=== PATIENT | male | born 1980 | race Caucasian/White ===

== ENCOUNTER 2020-01-22 16:32 | Emergency (ER) | payer BC, OTHER ==
[~2020-01-22] VITALS: Ht 177.8 cm; Wt 88.5 kg
[2020-01-22 19:34] VITALS: BP 134/84
== END 2020-01-22 19:31 | disposition home or self-care (01) ==
LOC: ER 16:32
DX: S06.0X1A Concussion with loss of consciousness of 30 minutes or less, initial encounter (principal); M48.02 Spinal stenosis, cervical region; M25.78 Osteophyte, vertebrae; I10 Essential (primary) hypertension; V86.56XA Driver of dirt bike or motor/cross bike injured in nontraffic accident, initial encounter; Y93.89 Activity, other specified; Y92.89 Other specified places as the place of occurrence of the external cause; Y99.8 Other external cause status
CPT/HCPCS: 70450; 72125

== ENCOUNTER 2021-12-23 13:55 | Inpatient (IN) | payer BC ==
[~2021-12-23] VITALS: Ht 177.8 cm; Wt 88.2 kg
[2021-12-23] MEDS ORDERED: SODIUM CHLORIDE 0.9% 1,000 ML IV ONE (14:30)
[2021-12-23 14:46] LABS: Basophils # (auto) 0.1 10 ^3/uL (0-0.2); Basophils % (auto) 0.8 % (0.0-2.0); Eosinophils # (auto) 0 10 ^3/uL (0-0.8); Eosinophils % (auto) 0.5 % (0.0-7.0); Hematocrit 48.3 % (41.0-53.0); Hemoglobin 15.9 g/dL (13.5-17.5); Lymphocytes # (auto) 1.4 10 ^3/uL (0.4-5.4); Lymphocytes % (auto) 19.5 % (10.0-50.0); Mean Corpuscular Hemoglobin 27.7 pg (28.0-32.0); Mean Corpuscular Hgb Conc. 32.8 g/dL (32.0-36.0); Mean Corpuscular Volume 84.5 fL (80.0-100.0); Monocytes # (auto) 0.5 10 ^3/uL (0-1.3); Neutrophils # (auto) 5.1 10 ^3/uL (1.6-8.6); Neutrophils % (auto) 72.2 % (37.0-80.0); Nucleated Red Blood Cells % 0.1 %; Red Blood Cells 5.72 10^6/uL (4.5-5.90); Red Cell Distribution Width 12.7 % (11.8-14.3); White Blood Cell 7.1 10^3/uL (4.4-10.8)
[2021-12-23 15:05] LABS: Albumin 4.1 g/dL (3.4-5.0); BUN/Creatinine Ratio 16.9; Calcium 9.5 mg/dL (8.5-10.1); Potassium 4.3 mmol/L (3.5-5.1)
[2021-12-23 15:08] LABS: Bilirubin, Total 0.4 mg/dL (0.2-1.0); Total Protein 8.1 g/dL (6.4-8.2)
[2021-12-23] MEDS ORDERED: InsuLIN REG 1unit/0.01ml Soln (100units/ml) IV ONE (15:45)
[2021-12-23] MEDS ORDERED: DEXTROSE (50%) 50ML SYRG IV PRN (20:30)
[2021-12-23] MEDS ORDERED: ONDANSETRON HCL 4 MG/2 ML VIAL IV PRN (20:30)
[2021-12-23] MEDS ORDERED: ZOLPIDEM TARTRATE 5 MG TAB PO PRN (20:30)
[2021-12-23] MEDS ORDERED: LORazepam 0.5 MG TAB PO PRN (20:30)
[2021-12-23] MEDS ORDERED: ACETAMINOPHEN 325 MG TAB PO PRN (20:30)
[2021-12-23] MEDS: SODIUM CHLORIDE 0.9% 1,000 ML IV SCH (21:15)
[2021-12-23] MEDS: METOPROLOL TARTRATE 25 MG TAB PO SCH (21:50)
[2021-12-23] MEDS: ATORVASTATIN 20 MG TAB PO SCH (21:50)
[2021-12-23] MEDS: ACCU-CHEK COMFORT CURVE STRIP VI SCH (23:59)
[2021-12-24] MEDS: InsuLIN REG 1unit/0.01ml Soln (100units/ml) SC SCH ×7 (00:09→23:47)
[2021-12-24] MEDS: ACCU-CHEK COMFORT CURVE STRIP VI SCH ×6 (04:16→23:47)
[2021-12-24 05:15] VITALS: BP 147/88
[2021-12-24 06:31] LABS: Basophils # (auto) 0 10 ^3/uL (0-0.2); Basophils % (auto) 0.4 % (0.0-2.0); Eosinophils # (auto) 0.1 10 ^3/uL (0-0.8); Hematocrit 41.2 % (41.0-53.0); Hemoglobin 14.4 g/dL (13.5-17.5); Lymphocytes # (auto) 1.5 10 ^3/uL (0.4-5.4); Lymphocytes % (auto) 25.3 % (10.0-50.0); Mean Corpuscular Hemoglobin 29.1 pg (28.0-32.0); Mean Corpuscular Hgb Conc. 34.9 g/dL (32.0-36.0); Mean Corpuscular Volume 83.5 fL (80.0-100.0); Monocytes # (auto) 0.6 10 ^3/uL (0-1.3); Monocytes % (auto) 10.8 % (0.0-12.0); Neutrophils # (auto) 3.6 10 ^3/uL (1.6-8.6); Neutrophils % (auto) 62.5 % (37.0-80.0); Red Blood Cells 4.94 10^6/uL (4.5-5.90); Red Cell Distribution Width 12.4 % (11.8-14.3); White Blood Cell 5.8 10^3/uL (4.4-10.8)
[2021-12-24 06:45] LABS: Calcium 8.5 mg/dL (8.5-10.1); Magnesium 2.2 mg/dL (1.6-2.6); Potassium 4.3 mmol/L (3.5-5.1)
[2021-12-24 06:48] LABS: BUN/Creatinine Ratio 14.5
[2021-12-24 08:00] VITALS: BP 131/86
[2021-12-24] MEDS: DOCUSATE SOD 100 MG CAP PO SCH (09:29)
[2021-12-24] MEDS: ASPirin 81 mg TAB PO SCH (09:30)
[2021-12-24] MEDS: LOSARTAN POTASSIUM 25 MG TAB PO SCH (09:30)
[2021-12-24] MEDS: METOPROLOL TARTRATE 25 MG TAB PO SCH ×2 (09:31→21:43)
[2021-12-24] MEDS: SODIUM CHLORIDE 0.9% 1,000 ML IV SCH ×2 (09:50→23:10)
[2021-12-24] MEDS ORDERED: ENOXAPARIN SOD 40 MG/0.4 ML SYRINGE SC SCH (10:00)
[2021-12-24] MEDS ORDERED: ENOXAPARIN SOD 30 MG/0.3 ML SYRINGE IV SCH (10:00)
[2021-12-24] MEDS ORDERED: CLOPIDOGREL BISULFATE 75 MG TAB PO SCH (10:00)
[2021-12-24] MEDS ORDERED: LORazepam 2MG/ML-1ML VIAL IV ONE (12:00)
[2021-12-24] MEDS ORDERED: THIAMINE 100mg/ml INJ (200mg/2ml VIAL) IV ONE (12:00)
[2021-12-24 12:04] VITALS: BP 145/91
[2021-12-24 13:31] LABS: Alcohol, Urine < 3.0 mg/dL (0-10); Amphetamine Screen, Urine NEGATIVE (NEGATIVE); Barbiturate Scree,Urine NEGATIVE (NEGATIVE); Benzodiazephine Screen, Urine NEGATIVE (NEGATIVE); Cannabinoid Screen, Urine NEGATIVE (NEGATIVE); Cocaine Screen, Urine NEGATIVE (NEGATIVE); Opiate Scree,Urine NEGATIVE (NEGATIVE); Phencyclidine Screen, Urine NEGATIVE (NEGATIVE)
[2021-12-24 15:58] LABS: Urine WBC None Seen /hpf (0 - 3)
[2021-12-24 16:00] VITALS: BP 140/85
[2021-12-24 16:43] LABS: Urine Bacteria NONE SEEN /hpf (None Seen); Urine Blood Negative /uL (Negative); Urine Specific Gravity 1.007 (1.001-1.035)
[2021-12-24] MEDS ORDERED: METOPROLOL TARTRATE 1MG/1ML-5ML VIAL IV PRN (17:30)
[2021-12-24] MEDS: ATORVASTATIN 20 MG TAB PO SCH (21:43)
[2021-12-24 22:00] VITALS: BP 128/97
[2021-12-25] VITALS: BP 128/97
[2021-12-25] MEDS: ACCU-CHEK COMFORT CURVE STRIP VI SCH ×5 (04:07→23:29)
[2021-12-25] MEDS: InsuLIN REG 1unit/0.01ml Soln (100units/ml) SC SCH ×5 (04:30→23:39)
[2021-12-25 05:00] VITALS: BP 126/85
[2021-12-25 09:00] VITALS: BP 144/80
[2021-12-25] MEDS ORDERED: DEXTROSE (50%) 50ML SYRG IV PRN (11:45)
[2021-12-25] MEDS: ASPirin 81 mg TAB PO SCH (11:58)
[2021-12-25] MEDS: THIAMINE 100mg/ml INJ (200mg/2ml VIAL) IV SCH (11:58)
[2021-12-25] MEDS: DOCUSATE SOD 100 MG CAP PO SCH (11:59)
[2021-12-25] MEDS: METOPROLOL TARTRATE 25 MG TAB PO SCH ×2 (11:59→21:45)
[2021-12-25] MEDS: LOSARTAN POTASSIUM 25 MG TAB PO SCH (12:00)
[2021-12-25 13:00] VITALS: BP 163/93
[2021-12-25 16:00] VITALS: BP 153/99
[2021-12-25] MEDS: ATORVASTATIN 20 MG TAB PO SCH (21:38)
[2021-12-25 22:00] VITALS: BP 126/84
[2021-12-25] MEDS: INSULIN LANTUS (GLARGINE) 1 /0.01ml (100units/ml) SC SCH (23:39)
[2021-12-26] VITALS: BP 124/80
[2021-12-26 05:00] VITALS: BP 121/72
[2021-12-26] MEDS: ACCU-CHEK COMFORT CURVE STRIP VI SCH ×3 (06:03→18:45)
[2021-12-26] MEDS: InsuLIN REG 1unit/0.01ml Soln (100units/ml) SC SCH ×3 (06:13→18:47)
[2021-12-26 08:00] VITALS: BP 130/90
[2021-12-26] MEDS ORDERED: MIDAZOLAM HCL 2MG/2ML 2ml VIAL (1mg/ml) IV ONE (11:00)
[2021-12-26] MEDS: ASPirin 81 mg TAB PO SCH (11:07)
[2021-12-26] MEDS: THIAMINE 100mg/ml INJ (200mg/2ml VIAL) IV SCH (11:07)
[2021-12-26] MEDS: METOPROLOL TARTRATE 25 MG TAB PO SCH ×2 (11:08→23:17)
[2021-12-26] MEDS: DOCUSATE SOD 100 MG CAP PO SCH (11:09)
[2021-12-26] MEDS: LOSARTAN POTASSIUM 25 MG TAB PO SCH (11:09)
[2021-12-26] MEDS: CLOPIDOGREL BISULFATE 75 MG TAB PO SCH (11:09)
[2021-12-26 13:00] VITALS: BP 135/95
[2021-12-26 16:00] VITALS: BP 131/93
[2021-12-26 22:09] VITALS: BP 137/99
[2021-12-26] MEDS: ATORVASTATIN 20 MG TAB PO SCH (23:16)
[2021-12-27] MEDS: InsuLIN REG 1unit/0.01ml Soln (100units/ml) SC SCH ×2 (00:01→06:53)
[2021-12-27] MEDS: INSULIN LANTUS (GLARGINE) 1 /0.01ml (100units/ml) SC SCH (00:01)
[2021-12-27] MEDS: ACCU-CHEK COMFORT CURVE STRIP VI SCH ×2 (00:02→06:48)
[2021-12-27 00:07] VITALS: BP 137/99
[2021-12-27 04:45] VITALS: BP 140/84
[2021-12-27 08:00] VITALS: BP 134/79
[2021-12-27 09:00] VITALS: BP 134/79
[2021-12-27] MEDS: ASPirin 81 mg TAB PO SCH (10:41)
[2021-12-27] MEDS: DOCUSATE SOD 100 MG CAP PO SCH (10:41)
[2021-12-27] MEDS: LOSARTAN POTASSIUM 25 MG TAB PO SCH (10:41)
[2021-12-27] MEDS: THIAMINE 100mg/ml INJ (200mg/2ml VIAL) IV SCH (10:41)
[2021-12-27] MEDS: METOPROLOL TARTRATE 25 MG TAB PO SCH (10:42)
[2021-12-27] MEDS: CLOPIDOGREL BISULFATE 75 MG TAB PO SCH (10:42)
[2021-12-27 11:58] VITALS: BP 126/76
== END 2021-12-27 14:00 | disposition home or self-care (01) | DRG 66 ==
LOC: ER 13:55 → TELE 20:26 → TELE-EAST 23:34
PROVIDERS: ADMIT Hospitalist; ATTEND Internal Medicine
PROC: B246ZZ4 Ultrasonography of Right and Left Heart, Transesophageal (ICD-10-PCS; principal; 2021-12-26)
DX: I63.9 Cerebral infarction, unspecified (principal); I10 Essential (primary) hypertension; E11.65 Type 2 diabetes mellitus with hyperglycemia; Z20.822 Contact with and (suspected) exposure to COVID-19; R27.0 Ataxia, unspecified; E78.00 Pure hypercholesterolemia, unspecified; Z79.02 Long term (current) use of antithrombotics/antiplatelets; Z79.82 Long term (current) use of aspirin; Z79.899 Other long term (current) drug therapy; Z91.19 Patient's noncompliance with other medical treatment and regimen
CPT/HCPCS: 36415; 70450; 70545; 70547; 70551; 71045; 80048; 80053; 80061; 80307; 81001; 81241; 82962; 83036; 83090; 83615; 83735; 84311; 84443; 84484; 85025; 85302; 85306; 85379; 85613; 85670; 85705; 85732; 86147; 93005; 93306; 93312; 93886; 96361; 96374; 99152; G0378; J1815; J2250

== ENCOUNTER 2022-05-20 05:05 | Emergency (ER) | payer BC ==
[~2022-05-20] VITALS: Ht 177.8 cm; Wt 86.4 kg
[2022-05-20 06:50] VITALS: BP 127/82
[2022-05-20] MEDS ORDERED: IBUP800T26 PO (10:15)
[2022-05-20] MEDS ORDERED: HYDR-4902 PO (10:15)
== END 2022-05-20 10:17 | disposition home or self-care (01) ==
LOC: ER 05:05
DX: S22.32XA Fracture of one rib, left side, initial encounter for closed fracture (principal); I10 Essential (primary) hypertension; W19.XXXA Unspecified fall, initial encounter; Y93.89 Activity, other specified; Y92.89 Other specified places as the place of occurrence of the external cause; Y99.8 Other external cause status
CPT/HCPCS: 71101